=== PATIENT | male | born 2000 | race Hispanic/Latino ===

== ENCOUNTER 2019-05-24 10:11 | Emergency (ER) | payer SELFPAY ==
[2019-05-24 10:29] VITALS: BP 135/80; PULSE 98; RESP 16; TEMP 37.1; O2SAT 99
--- NOTE | 2019-05-24 10:50 | ED.GENADULT ---
HPI - General Adult General Chief complaint: Headache Stated complaint: headache Time Seen by Provider: 05/24/19 10:51 Source: patient and RN notes reviewed Mode of arrival: ambulatory Limitations: no limitations History of Present Illness HPI narrative: 19-year-old male presents with complains of headache with aura of sensitivity to light for 1 day. Flanax with little relief, last this morning @ 6:30am. says this KAUFMAN is not the WORST of his life. No neck stiffness. No fever or chills. No URI symptoms. Gradual onset started 1 day ago. No head injury. History of migraines as a child. Denies dizziness, vision change, confusion, or seizure activity. Remains active. Some parts of this dictation were generated by voice recognition software and may contain typographical and/or grammatical inaccuracies. Related Data Allergies Allergy/AdvReac Type Severity Reaction Status Date / Time No Known Allergies Allergy Verified 05/24/19 10:38 Review of Systems Review of Systems: Narrative: CONSTITUTIONAL: Denies fever, chills, sweats. EYES: Denies visual changes, redness, discharge. ENT: Denies rhinorrhea, congestion, sore throat, otalgia. CARDIOVASCULAR: Denies chest pain, palpitations, edema. RESPIRATORY: Denies dyspnea, wheezing, cough. GASTROINTESTINAL: Denies abdominal pain, nausea, vomiting, diarrhea. GENITOURINARY: Denies dysuria, hematuria, abnormal discharge. SKIN: Denies rash or itching. MUSCULOSKELETAL: Denies acute back pain, joint pain, or myalgia. NEUROLOGIC: Denies numbness or focal weakness. Complains of a headache. PSYCHIATRIC: Denies anxiety or depression. All other systems reviewed are negative, except as documented in HPI and below. [facility] Past Medical History Medical History (Updated 05/25/19 @ 00:01 by Lorne Saba) Hx of migraines Childhood Surgical History Surgical History (Updated 05/29/19 @ 23:29 by AMENA Villanueva) No significant past surgical history Family History Family History (Updated 05/29/19 @ 23:30 by AMENA Villanueva) Other No significant family history Social History Social History (Updated 05/29/19 @ 23:31 by AMENA Villanueva) Smoking status: Never smoker Second hand tobacco smoke exposure: No Alcohol intake: never Substance use: never Living arrangements: with family Occupation/Education: occupation Gender identity (if verbalized by the patient): Male Comments At time of signature, agree with nurse past medical, surgical, social, and family history. There is no relevant family history pertinent to the presenting complaint. Exam Narrative: Exam Narrative: GENERAL: This is a well-nourished, well-developed patient, in no apparent distress. Talks in full sentences and ambulates with steady gait without dyspnea. HEAD: normocephalic, atraumatic. EYES: PERRL. Sclera clear/white. Vision is grossly intact. EARS: External ears normal, auditory canals clear and without drainage, TMs normal without perforation. Hearing grossly intact. NOSE: External nose normal with no obvious nasal discharge, nares with mild redness, no rhinorrhea. THROAT: Mucous membranes moist, posterior pharynx clear. NECK: Neck supple, non-tender without lymphadenopathy, masses or thyromegaly. CARDIOVASCULAR: Regular rate and rhythm without murmurs, gallops, or rubs. RESPIRATORY: Clear to auscultation. Breath sounds equal bilaterally. No wheezes, rales, or rhonchi. GASTROINTESTINAL: Abdomen soft, non-tender, nondistended. Bowel sounds are active. No hepato-splenomegaly, or palpable masses. No guarding. SKIN: warm, intact with no suspicious lesions or rash, good texture and turgor. NEURO: awake, alert, and oriented to person, place and time. There were no obvious focal neurologic abnormalities. EXTREMITIES: No clubbing, cyanosis, or edema. No joint tenderness, effusion, or edema noted. No calf tenderness. Negative Homans sign bilaterally. BACK: Nontender withou
[2019-05-24] MEDS: KETOROLAC (*BKC) 60 MG/2 ML VIAL IM (11:07)
== END 2019-05-24 11:40 | disposition home or self-care (01) ==
PROVIDERS: Emergency Provider Nurse Practitioner Family
DX: R51 Headache (principal)
CPT/HCPCS: 96372; 99203; G0463; J1885

== ENCOUNTER 2019-05-25 07:50 | Emergency (ER) | payer SELFPAY ==
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
[2019-05-25 07:57] VITALS: BP 138/72; PULSE 87; RESP 18; TEMP 36.4; O2SAT 100
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
[2019-05-25] MEDS: SODIUM CHLORIDE 0.9% IV 1,000 ML 999 ML IV CONT (08:58)
== END 2019-05-25 10:47 | disposition home or self-care (01) ==
PROVIDERS: Emergency Provider Emergency Medicine
DX: J10.1 Influenza due to other identified influenza virus with other respiratory manifestations (principal)
CPT/HCPCS: 70450; 72125; 87804; 96361; 96374; 99284; J0131; J7030